=== PATIENT | female | born 1975 | race Hispanic/Latino ===

== ENCOUNTER 2022-03-10 16:23 | Outpatient (CLI) | payer OTHER | END 2022-03-10 16:24 | disposition home or self-care (01) | LOC: CSHLAB 16:23 | PROVIDERS: ATTEND Internal Medicine Gastroenterology | DX: Z20.822 Contact with and (suspected) exposure to COVID-19 (principal) | CPT/HCPCS: 87811 ==

== ENCOUNTER 2022-03-15 06:53 | Day surgery (SDC) | payer OTHER ==
[2022-03-11 12:39] VITALS: BMI 26.4
[2022-03-15] MEDS ORDERED: Glycopyrrolate 0.2 MG/ML 5 ML SYRINGE ONE (09:07)
[2022-03-15] MEDS ORDERED: PROPOFOL 40 ML ONE (09:07)
== END 2022-03-15 10:22 | disposition home or self-care (01) ==
LOC: CSHSDC 06:53
PROVIDERS: ATTEND Internal Medicine Gastroenterology
DX: Z12.11 Encounter for screening for malignant neoplasm of colon (principal); K21.9 Gastro-esophageal reflux disease without esophagitis; R10.13 Epigastric pain; Z79.899 Other long term (current) drug therapy; Z20.822 Contact with and (suspected) exposure to COVID-19; Z90.49 Acquired absence of other specified parts of digestive tract
CPT/HCPCS: J2704